=== PATIENT | female | born 1945 | race Caucasian/White ===

== ENCOUNTER 2017-11-10 10:39 | Outpatient (CLI) | payer MEDICARE ==
--- NOTE | 2017-11-10 12:45 | RAD ---
TWO VIEWS CERVICAL SPINE: Date: 11-10-17 Provided Clinical History: Neck pain. FINDINGS: The skull base through the cranial aspects of C7 visualized on the lateral view. The frontal view is suboptimal due to overlying patient jaw. Vertebral body heights appear preserved. Advanced multilevel cervical facet and disc degenerative changes are seen. No prevertebral soft tissue swelling is evide nt. 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 IMPRESSION: Advanced multilevel cervical disc and facet degenerative change. POS: P[facility]A
== END 2017-11-10 10:40 | disposition home or self-care (01) ==
LOC: TBSIIMAG 10:39
PROVIDERS: ATTEND Physician Assistant
DX: M54.2 Cervicalgia (principal); M47.892 Other spondylosis, cervical region
CPT/HCPCS: 72040